=== PATIENT | female | born 1995 | race Caucasian/White ===

== ENCOUNTER 2020-07-30 07:54 | Emergency (ER) | payer OTHER ==
[2020-07-30 08:06] VITALS: RESP 16
[2020-07-30] MEDS ORDERED: IBUPROFEN 600 MG TAB PO STA (08:12)
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
[2020-07-30 09:29] VITALS: BP 116/74; PULSE 64; TEMP 98.5
== END 2020-07-30 09:29 | disposition home or self-care (01) ==
LOC: EC 07:54
DX: S09.11XA Strain of muscle and tendon of head, initial encounter (principal); V43.52XA Car driver injured in collision with other type car in traffic accident, initial encounter; Y92.410 Unspecified street and highway as the place of occurrence of the external cause
CPT/HCPCS: 70110; 99284

== ENCOUNTER → 2022-03-15 | Outpatient (CLI) | payer OTHER ==
--- NOTE | 2022-03-15 16:16 | US ---
EXAMINATION TYPE: Transabdominal DATE OF EXAM: 03/15/2022 8:05 AM COMPARISON: NONE CLINICAL HISTORY: Z36.89. confirm dates. Positive beta-hCG test. EXAM PERFORMED: Transabdominal (TA) EXAM MEASUREMENTS: GESTATIONAL AGE / DATING Physician Established: Not yet established Dates by LMP: LMP unknown Dates by First Scan: No previous this is first scan Dates by Current Scan for: (11 weeks/4 days) EDC: 09/30/2022 MATERNAL ANATOMY Uterus: 7.6 x 8.7 x 9.7 Right Ovary: 3.3 x 2.5 x 1.6 cm Left Ovary: obscured by bowel gas Post CDS / Adnexa: wnl Presence of free fluid: no Presence of corpus luteal cyst: no Presence of subchorionic bleed: no GESTATION / SURVEY CRL: 4.7 cm (11 weeks/4 days) Heart Rate: 158 bpm Rhythm: Normal IUP: Viable IUP Beta HcG (if available): Not available at this time Single live intrauterine gestation is confirmed as gestational sac and pole are seen. Yolk sac not clearly identified. No free fluid in pelvic cul-de-sac. Right ovary is seen. Left ovary is not clearly identified. No suspicious extra ovarian adnexal masses . IMPRESSION: Single live intrauterine gestation is confirmed. Mean crown-rump length is 4.7 cm corresp onding to a 11 week 4 day old fetus.
== END | disposition home or self-care (01) ==
LOC: RADUSWWP 07:41
PROVIDERS: ATTEND Obstetrics & Gynecology
DX: Z36.89 Encounter for other specified antenatal screening (principal); Z3A.11 11 weeks gestation of pregnancy
CPT/HCPCS: 76801

== ENCOUNTER → 2022-05-06 | Outpatient (CLI) | payer OTHER ==
--- NOTE | 2022-05-06 13:28 | US ---
EXAMINATION TYPE: US OB anatomy transabd DATE OF EXAM: 05/06/2022 COMPARISON: 03/15/22 HISTORY: O36.62X0 Maternal care for excessive growth, anatomy scan TECHNIQUE: Transabdominal (TA) EXAM MEASUREMENTS: GESTATIONAL AGE / DATING Physician Established: (19 weeks/3 days) EDC: 09/27/22 Dates by First Scan: (19 weeks/0 days) EDC: 09/30/22 Dates by Current Scan for: (18 weeks/6 days) EDC: 10/01/22 SURVEY IUP: Single PLACENTA: Posterior PREVIA: No previa JUDD: 12.4 cm Normal CERVICAL LENGTH (transabdominal: norm > 3.0cm): 3.4 cm BIOMETRY PRESENTATION: Vertex LIE: Longitudinal BPD: 4.3 cm 19 weeks / 0 days HC: 16.6 cm 19 weeks / 0 days AC: 14.5 cm 19 weeks / 5 days FL: 2.8 cm 18 weeks / 4 days ESTIMATED WEIGHT IN GRAMS: 278.4 grams ESTIMATED WEIGHT IN LBS/OZ: 0 lbs. 10 oz. WEIGHT PERCENTAGE BASED ON ESTABLISHED DATE: 32 % HC/AC: 1.1 Normal FL/AC: 19.4 Normal HEART RATE: 138 bpm RHYTHM: Normal ANATOMY SEEN (within normal limits): * Lateral Vent (< 1 cm) 0.5 cm * Cisterna Magna (< 1.1 cm) 0.4 cm * Nuchal Fold (< 0.6 cm) 0.2 cm * Cerebellum (varies with age) 1.97 cm Choroid Plexus (bilateral) Midline Falx Cavus Septi Pellucidi Four Chamber Heart Outflow tracts: LVOT/RVOT Stomach Situs Nose / Lips Diaphragm Kidneys (bilateral) Bladder Cord Insert Three Vessel Cord Longitudinal Spine Transverse Spine Arms (bilateral) Legs (bilateral) IMPRESSION: Single viable intrauterine .
== END | disposition home or self-care (01) ==
LOC: RADUSWWP 09:26
PROVIDERS: ATTEND Obstetrics & Gynecology
DX: O36.62X0 Maternal care for excessive fetal growth, second trimester, not applicable or unspecified (principal); Z3A.19 19 weeks gestation of pregnancy
CPT/HCPCS: 76811

== ENCOUNTER 2022-10-02 09:19 | Outpatient (CLI) | payer OTHER, BC ==
[2022-10-02 10:42] VITALS: BP 125/74; PULSE 96; RESP 18; TEMP 97.4
--- NOTE | 2022-10-03 02:55 | P.MSEPDOC ---
Presenting Problems - Arrival Data Date of Arrival on Unit: 10/02/22 Time of Arrival on Unit: 09:19 Mode of Transport: Ambulatory - Complaint OB-Reason for Admission/Chief Complaint: Rule Out SROM Comment: Leaking since 1899 last night with intermittent contractions Medical History - Information : 1 Para: 0 Term: 0 : 0 Abortions: Spontaneous or Elective: 0 Number of Living Children: 0 - Gestational Age Gestational Age by THERON (wks/days): 40 Weeks and 5 Days Review of Systems - Review of Systems Constitutional: No problems Breast: No problems ENT: No problems Cardiovascular: No problems Respiratory: No problems Gastrointestinal: No problems Genitourinary: No problems Musculoskeletal: No problems Neurological: No problems Skin: No problems Vital Signs - Temperature Temperature: 97.4 F Temperature Source: Temporal Artery Scan - Pulse Right Sitting Brachial Pulse Rate: 96 Pulse Assessment Method: Automatic Cuff - Respirations Respiratory Rate: 18 Oxygen Delivery Method: Room Air O2 Sat by Pulse Oximetry: 98 - Blood Pressure Right Arm Sitting Blood Pressure: 125/74 Blood Pressure Mean: 91 Blood Pressure Source: Automatic Cuff Medical Screen Scoring - Cervical Exam Dilation (cm): 2 Effacement (%): 70 Station: -2 Membranes: Intact - Uterine Contractions Frequency From (mins): 4 Frequency To (mins): 10 Duration From (seconds): 60 Duration To (seconds): 80 Intensity: Moderate Resting: Soft to palpation - Assessment - Baby A Baseline FHR: 120 Heart Rate - NICHD Category: Category I (Normal) NST: Reactive Physician Notification - Physician Notified Physician Notified Date: 10/02/22 Physician Notified Time: 09:30 Physician: Claritza Ulloa Order Received: Yes - Notification Comment Comment: amnisure neg. Cervix unchanged x2 hours Maternal Triage Index - Maternal Triage Index Presenting for scheduled procedure w/no complaint: No - Stat/Priority 1 Stat Priority 1: No - Urgent/Priority 2 Urgent Priority 2: No - Prompt/Priority 3 Prompt Priority 3: Yes Criteria Met for Priority 3: contractions and leaking Disposition - Disposition OB Disposition: Discharge to home Discharge Date: 10/02/22 Discharge Time: 10:38 I agree with the RN Medical Screening Exam: Yes Case reviewed; plan agreed upon as documented in EMR&OBIX.: Yes Diagnosis: FALSE LABOR AT OR AFTER 37 COMPLETED WEEKS OF GESTATION
== END 2022-10-02 10:42 | disposition home or self-care (01) ==
LOC: FBPOP 09:19
PROVIDERS: ATTEND Obstetrics & Gynecology
DX: O47.1 False labor at or after 37 completed weeks of gestation (principal); Z3A.40 40 weeks gestation of pregnancy
CPT/HCPCS: 59025; 84112; 99213

== ENCOUNTER 2022-10-02 19:27 | Inpatient (IN) | payer BC, OTHER ==
[2022-10-02] MEDS ORDERED: AMPICILLIN 2,000 MG in SODIUM CHLORIDE 0.9% 100 ML IVPB STA (20:02)
[2022-10-02] MEDS ORDERED: TERBUTALINE 1 MG/ML VIAL SQ PRN (20:02)
[2022-10-02] MEDS ORDERED: LIDOCAINE 0.5% (PF) 5 MG/ML (50 ML SDV) SQ PRN (20:02)
[2022-10-02] MEDS ORDERED: OXYTOCIN 30 UNITS/500 ML NS 30 UNIT in SALINE 1 500ML.BAG IV SCH (20:15)
[2022-10-02] MEDS: LACTATED RINGERS 1,000 ML IV SCH ×2 (20:25→23:47)
[2022-10-02 20:46] LABS: Basophils % (A) 0 %; Eosinophils # (A) 0.1 k/uL (0-0.7); Eosinophils % (A) 1 %; HCT 38.2 % (34.0-46.0); HGB 12.3 gm/dL (11.4-16.0); Hypochromasia Moderate; Lymphocytes # (A) 1.5 k/uL (1.0-4.8); Lymphocytes % (A) 13 %; MCH 24.5 pg (25.0-35.0); MCHC 32.1 g/dL (31.0-37.0); MCV 76.2 fL (80.0-100.0); Mean Platelet Volume 8.5; Monocytes # (A) 0.6 k/uL (0-1.0); Monocytes % (A) 5 %; Neutrophils # (A) 9.2 k/uL (1.3-7.7); Neutrophils % (A) 79 %; Platelet Count 200 k/uL (150-450); RBC 5.01 m/uL (3.80-5.40); RDW 13.8 % (11.5-15.5); WBC 11.6 k/uL (3.8-10.6)
[2022-10-02] MEDS ORDERED: ROPIVACAINE 5 MG/ML 20 ML AMPULE ONE (22:55)
[2022-10-02] MEDS ORDERED: SODIUM CHLORIDE 0.9% 100 ML BAG ONE (22:55)
[2022-10-02] MEDS ORDERED: fentaNYL (PF) 50 MCG/ML 5 ML AMP ONE (22:55)
[2022-10-03] MEDS ORDERED: AMPICILLIN 1,000 MG in SODIUM CHLORIDE 0.9% 50 ML IVPB SCH (00:15)
--- NOTE | 2022-10-03 00:25 | P.HPOB ---
History of Present Illness H&P Date: 10/03/22 Chief Complaint: Contractions This is a 27-year-old female 1 para 0 with an estimated date of confinement of 09/27/2022, estimated gestational age of 40-5/7 weeks who presented to labor and delivery with complaints of contractions that became stronger through the day today. She was seen in triage earlier with questionable spontaneous rupture membranes but amnisure was negative at that time. She states she still continues to feel damp but no big gushes of fluid. Amnisure on admission was positive. Her care has been with Dr. Ruffin and has been uncomplicated. labs: Group B streptococcus-negative GC/chlamydia/Trichomonas-negative One hour Glucola-85 Hepatitis B surface antigen-negative RPR-nonreactive Rubella-immune Blood type-A- Antibody screen-negative RhoGAM was given at approximately 28 weeks HIV-nonreactive The globe and-13.6 Toxoplasma screen-negative Random glucose-77 Obstetrical history: . Gynecologic history: No history of sexual transmitted diseases Social history: . Works at a car dealership. Review of Systems Constitutional: Denies chills, Denies fever Eyes: denies blurred vision, denies pain Ears, nose, mouth and throat: Denies headache, Denies sore throat Cardiovascular: Denies chest pain, Denies shortness of breath Respiratory: Denies cough Gastrointestinal: Reports abdominal pain (Contractions) Genitourinary: Reports pelvic pain, Reports Musculoskeletal: Denies myalgias Integumentary: Denies pruritus, Denies rash Neurological: Denies numbness, Denies weakness Psychiatric: Denies anxiety, Denies depression Past Medical History Past Medical History: No Reported History History of Any Multi-Drug Resistant Organisms: None Reported Past Surgical History: Tonsillectomy Past Anesthesia/Blood Transfusion Reactions: No Reported Reaction Past Psychological History: No Psychological Hx Reported Smoking Status: Never smoker Past Alcohol Use History: Occasional Past Drug Use History: None Reported - Past Family History Mother Family Medical History: No Reported History Medications and Allergies Home Medications Medication Instructions Recorded Confirmed Type Vit No.179/Iron/Folic 1 each PO DAILY 10/02/22 10/02/22 History [ Tablet] Allergies Allergy/AdvReac Type Severity Reaction Status Date / Time No Known Allergies Allergy Verified 10/02/22 19:33 Exam Osteopathic Statement: *. No significant issues noted on an osteopathic structural exam other than those noted in the History and Physical/Consult. Vital Signs Temp Pulse Resp BP Pulse Ox 10/02/22 19:54 97.2 F L 74 16 128/75 100 10/02/22 19:33 97.4 F L 74 16 128/75 Intake and Output 10/02/22 10/02/22 10/03/22 14:59 22:59 06:59 Other: Weight 78.471 kg HEENT: Within normal limits Heart: Regular rate and rhythm Lungs: Clear to auscultation bilaterally Abdomen: Cervix: On admission is 3-1/2-4 cm/70%/-2 station. Positive amnisure was noted but no fluid was seen on the glove. Artificial rupture of membranes is carried out at 7 cm with clear fluid noted. heart tones: Category 1 Contractions: Every 3-4 minutes Extremities: Negative Homans Results Result Diagrams: 10/02/22 20:16 Abnormal Lab Results - Last 24 Hours (Table) 10/02/22 Range/Units 20:16 WBC 11.6 H (3.8-10.6) k/uL MCV 76.2 L (80.0-100.0) fL MCH 24.5 L (25.0-35.0) pg Neutrophils # 9.2 H (1.3-7.7) k/uL Assessment and Plan (1) 40 weeks gestation of Current Visit: Yes Status: Acute Code(s): Z3A.40 - 40 WEEKS GESTATION OF SNOMED Code(s): 58800567 Plan: Admission for active labor. Epidural anesthesia. Oxytocin augmentation of labor if necessary. Expectant management.
[2022-10-03] MEDS ORDERED: CARBOPROST TROMETHAMINE 250 MCG/ML 1 ML AMP IM PRN (00:26)
[2022-10-03] MEDS ORDERED: miSOPROStoL 200 MCG TAB PO PRN (00:26)
[2022-10-03] MEDS ORDERED: TRANEXAMIC ACID IN NACL,ISO-OS 1,000 MG in EMPTY BAG 1 BAG IV PRN (00:26)
[2022-10-03] MEDS ORDERED: OXYTOCIN 10 UNIT/ML 1 ML VIAL IM PRN (00:26)
[2022-10-03] MEDS ORDERED: METHYLERGONOVINE 0.2 MG/ML 1 ML AMP IM PRN (00:26)
--- NOTE | 2022-10-03 02:55 | P.PROBDLV ---
Vaginal Delivery Note - . Vaginal Delivery Note: The patient progressed to complete dilation after artificial rupture membranes with clear fluid noted and epidural anesthesia. She then began pushing. 's head came to a crown. With one further push, the 's head delivered across the perineum in the left occiput anterior lie. With one further push she was unable to bring down the anterior shoulder. She was instructed to stop pushing. I attempted to try to sweep the anterior or right shoulder in a counterclockwise fashion but was unable to move the shoulder. I then was able to reach posteriorly and sweep the posterior shoulder in a clockwise fashion and this did move the baby enough that she was able to give 1 more push and deliver the anterior shoulder. With one further push, the remainder the delivered and was placed on mother's abdomen. Nose and mouth were bulb suctioned. Cord was clamped and cut. Infant was taken to warmer for evaluation. A viable female was noted with scores of 7 at 1 minute and 8 at 5 minutes and weight of 8 pounds 5.3 ounces. Melvin adams delivered shortly thereafter, intact, with a three-vessel cord. Uterus contracted fairly well after oxytocin was given and uterine massage was carried out. Inspection of the perineum revealed a small first-degree perineal laceration. This area was anesthetized with 1% lidocaine and then sutured with 3-0 Vicryl suture in a running locked fashion. Estimated blood loss is approximately 200 mL's. Both mother and are in stable condition. Patient was counseled regarding the shoulder dystocia and advised that in the future she may require a section as this is a risk factor for future shoulder dystocia. The entire shoulder dystocia lasted less than 60 seconds. Inspection of the placenta did reveal a fore-bag and this may have been why I was able to palpate and rupture membranes even though she was positive amnisure.
[2022-10-03] MEDS ORDERED: BENZOCAINE/MENTHOL SPRAY 1 GM/SPRAY AEROSOL TOPICAL PRN (02:59)
[2022-10-03] MEDS ORDERED: diphenhydrAMINE 50 MG CAP PO PRN (02:59)
[2022-10-03] MEDS ORDERED: OXYTOCIN 30 UNITS/500 ML NS 30 UNIT in SALINE 1 500ML.BAG IV SCH (02:59)
[2022-10-03] MEDS ORDERED: SIMETHICONE 80 MG CHEWABLE PO PRN (02:59)
[2022-10-03] MEDS ORDERED: HYDROCORTISONE 2.5% RECTAL CREAM 30 GM TUBE RECTAL PRN (02:59)
[2022-10-03] MEDS ORDERED: diphenhydrAMINE 50 MG/ML 1 ML VIAL IVP PRN ×2 (02:59)
[2022-10-03] MEDS ORDERED: LANOLIN CREAM 5 GM TUBE TOPICAL PRN (02:59)
[2022-10-03] MEDS ORDERED: ZOLPIDEM 5 MG TAB PO PRN (02:59)
[2022-10-03] MEDS ORDERED: diphenhydrAMINE 25 MG CAP PO PRN (02:59)
[2022-10-03 04:16] VITALS: RESP 16
[2022-10-03] MEDS: IBUPROFEN 600 MG TAB PO PRN ×2 (04:53→11:25)
[2022-10-03] MEDS: ACETAMINOPHEN TAB 325 MG TAB PO PRN ×2 (08:16→17:48)
[2022-10-03] MEDS: SENNOSIDES-DOCUSATE SODIUM 1 EACH TAB PO SCH ×2 (08:18→20:12)
[2022-10-03] MEDS ORDERED: Rhogam IMMUNE GLOBULIN 1,500 UNIT/1 ML IM ONE (08:21)
--- NOTE | 2022-10-03 09:29 | P.MSEPDOC ---
Presenting Problems - Arrival Data Date of Arrival on Unit: 10/02/22 Time of Arrival on Unit: 20:00 Mode of Transport: Ambulatory - Complaint OB-Reason for Admission/Chief Complaint: Possible Onset of Labor, Rule Out SROM Medical History - Information : 1 Para: 0 Term: 0 : 0 Abortions: Spontaneous or Elective: 0 Number of Living Children: 0 - Gestational Age Gestational Age by THERON (wks/days): 40 Weeks and 6 Days Review of Systems - Review of Systems Constitutional: No problems Breast: No problems ENT: No problems Cardiovascular: No problems Respiratory: No problems Gastrointestinal: No problems Genitourinary: No problems Musculoskeletal: No problems Neurological: No problems Skin: No problems Vital Signs - Temperature Temperature: 97.4 F Temperature Source: Oral - Pulse Right Brachial Pulse Rate: 79 Pulse Assessment Method: Pulse Oximetry - Respirations Respiratory Rate: 16 Oxygen Delivery Method: Room Air O2 Sat by Pulse Oximetry: 98 - Blood Pressure Right Arm Blood Pressure: 106/62 Blood Pressure Mean: 76 Blood Pressure Source: Automatic Cuff Medical Screen Scoring - Cervical Exam Dilation (cm): 3.5 Effacement (%): 70 Station: -2 Membranes: Ruptured - Uterine Contractions Frequency From (mins): 3 Frequency To (mins): 6 Duration From (seconds): 60 Duration To (seconds): 120 Intensity: Strong Resting: Soft to palpation - Assessment - Baby A Baseline FHR: 120 Heart Rate - NICHD Category: Category I (Normal) NST: Reactive Physician Notification - Physician Notified Physician Notified Date: 10/02/22 Physician Notified Time: 19:59 Physician: Claritza Ulloa Order Received: Yes - Notification Comment Comment: patient admitted to unit for labor. may recieve epidural and stadol. Ampicillin ordered for unknown rupture time. Maternal Triage Index - Stat/Priority 1 Stat Priority 1: No - Urgent/Priority 2 Urgent Priority 2: No - Prompt/Priority 3 Prompt Priority 3: Yes Criteria Met for Priority 3: srom Disposition - Disposition OB Disposition: Admit Discharge Date: 10/02/22 Discharge Time: 20:00 I agree with the RN Medical Screening Exam: Yes Case reviewed; plan agreed upon as documented in EMR&OBIX.: Yes Diagnosis: ENCOUNTER FOR FULL-TERM UNCOMPLICATED DELIVERY
[2022-10-04 04:50] LABS: Basophils % (A) 0 %; Eosinophils # (A) 0.1 k/uL (0-0.7); Eosinophils % (A) 1 %; HCT 33.2 % (34.0-46.0); HGB 10.6 gm/dL (11.4-16.0); Hypochromasia Marked; Lymphocytes # (A) 1.5 k/uL (1.0-4.8); Lymphocytes % (A) 17 %; MCH 24.6 pg (25.0-35.0); MCV 76.8 fL (80.0-100.0); Mean Platelet Volume 8.9; Monocytes # (A) 0.4 k/uL (0-1.0); Monocytes % (A) 4 %; Neutrophils # (A) 6.8 k/uL (1.3-7.7); Neutrophils % (A) 76 %; Platelet Count 133 k/uL (150-450); RBC 4.32 m/uL (3.80-5.40); RDW 14.1 % (11.5-15.5)
--- NOTE | 2022-10-04 06:34 | P.PNOBGVD ---
Subjective - Subjective Patient reports: Reports appetite normal, Reports voiding normally, Reports pain well controlled, Reports ambulating normally : doing well Objective - Latest Vital Signs Latest vital signs: Vital Signs Temp Pulse Resp BP Pulse Ox 10/04/22 00:00 97.9 F 79 16 118/74 97 10/03/22 20:00 97.6 F 71 16 121/73 99 10/03/22 16:00 98.3 F 78 16 110/65 94 L 10/03/22 11:36 98.1 F 74 16 113/63 99 10/03/22 09:29 97.4 F L 79 16 106/62 98 10/03/22 08:00 97.4 F L 79 16 106/62 98 Intake and Output 10/03/22 10/03/22 10/04/22 14:59 22:59 06:59 Other: # Voids 1 1 2 # Bowel Movements 0 0 - Labs Labs: Abnormal Lab Results - Last 24 Hours (Table) 10/04/22 Range/Units 04:37 Hgb 10.6 L (11.4-16.0) gm/dL Hct 33.2 L (34.0-46.0) % MCV 76.8 L (80.0-100.0) fL MCH 24.6 L (25.0-35.0) pg Plt Count 133 L (150-450) k/uL Assessment and Plan Assessment: day #1. Patient is resting without new complaints. She wishes to go home. Vital signs are stable and she is afebrile. Patient is having normal lochia. I did rediscuss her delivery and shoulder dystocia and reinforced Dr. Ulloa's recommendation to deliver by if she were to have another baby. Plan today is to continue routine care discharge home later today. (1) Vaginal delivery Current Visit: Yes Status: Acute Code(s): O80 - ENCOUNTER FOR FULL-TERM UNCOMPLICATED DELIVERY SNOMED Code(s): 492970887 (2) Shoulder dystocia, delivered Current Visit: Yes Status: Acute Code(s): O66.0 - OBSTRUCTED LABOR DUE TO SHOULDER DYSTOCIA SNOMED Code(s): 223962868
--- NOTE | 2022-10-04 06:39 | P.DS ---
Providers Date of admission: 10/02/22 19:48 Expected date of discharge: 10/04/22 Attending physician: Pelon Ruffin Primary care physician: Stated None - Discharge Diagnosis(es) (1) Vaginal delivery Current Visit: Yes Status: Acute (2) Shoulder dystocia, delivered Current Visit: Yes Status: Acute Hospital Course: Please see dictated history and physical and delivery note per Dr. Ulloa. In brief summary this is a pleasant 27-year-old 1 para 0 female 40-5/7 weeks gestation admitted to labor and delivery with spontaneous rupture membranes and labor. Patient was on have a vaginal delivery of viable female infant. Please see dictated delivery note. Of note, patient's delivery was complicated by a significant shoulder dystocia that was resolved without sequelae. day #1 patient was doing well felt to be stable for discharge home follow up with me in 6 weeks. Procedures: Normal spontaneous vaginal delivery Patient Condition at Discharge: Good Plan - Discharge Summary Discharge Rx Participant: No New Discharge Prescriptions: New Ibuprofen [Motrin] 600 mg PO Q6HR PRN #40 tab PRN Reason: Mild Pain (Scale 1 To 3) No Action Vit No.179/Iron/Folic [ Tablet] 1 each PO DAILY Discharge Medication List Vit No.179/Iron/Folic [ Tablet] 1 each PO DAILY 10/02/22 [History] Ibuprofen [Motrin] 600 mg PO Q6HR PRN #40 tab 10/04/22 [Rx] Follow up Appointment(s)/Referral(s): Pelon Ruffin MD [STAFF PHYSICIAN] - 6 Weeks Patient Instructions/Handouts: Vaginal Delivery (DC), Shoulder Dystocia (GEN) Activity/Diet/Wound Care/Special Instructions: No intercourse or anything per vagina for 6 weeks. Please call if any fever, chills, excessive vaginal bleeding, and/or abdominal pain. Discharge Disposition: HOME SELF-CARE
[2022-10-04] MEDS: IBUPROFEN 600 MG TAB PO PRN ×2 (08:21→23:32)
[2022-10-04] MEDS: SENNOSIDES-DOCUSATE SODIUM 1 EACH TAB PO SCH ×2 (08:23→19:56)
--- NOTE | 2022-10-05 06:25 | P.PNOBGVD ---
Subjective - Subjective Patient reports: Reports appetite normal, Reports voiding normally, Reports pain well controlled, Reports ambulating normally : doing well Objective - Latest Vital Signs Latest vital signs: Vital Signs Temp Pulse Resp BP Pulse Ox 10/05/22 00:00 98.2 F 98 16 105/59 97 10/04/22 20:00 98.4 F 69 16 112/71 98 10/04/22 16:00 98.7 F 75 16 100/60 10/04/22 08:00 98.0 F 97 16 126/80 Intake and Output 10/04/22 10/04/22 10/05/22 14:59 22:59 06:59 Other: # Voids 1 1 1 - Exam Lungs: bilateral: normal Chest: Normal S1, Normal S2 Extremities: Present: normal Abdomen: Present: normal appearance, soft Uterus: Present: normal, firm Assessment and Plan Assessment: day #2. Patient was going to go home yesterday however her baby was not feeling well therefore the discharge was canceled. Patient's baby is feeding better today and will be discharged home today and follow up with me in 6 weeks. We'll continue routine care. (1) Vaginal delivery Current Visit: Yes Status: Acute Code(s): O80 - ENCOUNTER FOR FULL-TERM UNCOMPLICATED DELIVERY SNOMED Code(s): 456458123 (2) Shoulder dystocia, delivered Current Visit: Yes Status: Acute Code(s): O66.0 - OBSTRUCTED LABOR DUE TO SHOULDER DYSTOCIA SNOMED Code(s): 178709609
[2022-10-05] MEDS: IBUPROFEN 600 MG TAB PO PRN (07:49)
[2022-10-05 07:52] VITALS: BP 99/65; PULSE 79; TEMP 98.3
[2022-10-05] MEDS: SENNOSIDES-DOCUSATE SODIUM 1 EACH TAB PO SCH (07:52)
== END 2022-10-05 12:10 | disposition home or self-care (01) | DRG 807 ==
LOC: FBPOP 19:27 → 4FBP 19:48
PROVIDERS: ADMIT Obstetrics & Gynecology; ATTEND Obstetrics & Gynecology
PROC: 4A0HXCZ Measurement of Products of Conception, Cardiac Rate, External Approach (ICD-10-PCS; principal; 2022-10-03)
PROC: 10E0XZZ Delivery of Products of Conception, External Approach (ICD-10-PCS; principal; 2022-10-03)
PROC: 10907ZC Drainage of Amniotic Fluid, Therapeutic from Products of Conception, Via Natural or Artificial Opening (ICD-10-PCS; principal; 2022-10-03)
PROC: 0HQ9XZZ Repair Perineum Skin, External Approach (ICD-10-PCS; principal; 2022-10-03)
DX: O66.0 Obstructed labor due to shoulder dystocia (principal); Z37.0 Single live birth; O48.0 Post-term pregnancy; O70.0 First degree perineal laceration during delivery; O62.3 Precipitate labor; Z3A.40 40 weeks gestation of pregnancy
CPT/HCPCS: 59025; 84112; 85025; 85461; 86850; 86900; 86901; 88307; 99213